=== PATIENT | female | born 1995 | race African-American/Black ===

== ENCOUNTER 2020-05-27 11:52 | Emergency (ER) | payer OTHER | END 2020-05-27 14:31 | disposition home or self-care (01) | LOC: CSHERS 11:52 | DX: R10.11 Right upper quadrant pain (principal); R10.13 Epigastric pain; I10 Essential (primary) hypertension; J45.909 Unspecified asthma, uncomplicated | CPT/HCPCS: 76705 ==

== ENCOUNTER 2021-04-22 10:53 | Outpatient (CLI) | payer OTHER ==
[2021-04-22 20:20] LABS: SARS-CoV-2 PCR by NAA Not Detected (NotDetected)
== END 2021-04-22 10:54 | disposition home or self-care (01) ==
LOC: CSHLAB 10:53
PROVIDERS: ATTEND Surgery
DX: Z20.822 Contact with and (suspected) exposure to COVID-19 (principal)
CPT/HCPCS: U0003; U0005